=== PATIENT | male | born 1970 | race Caucasian/White ===

== ENCOUNTER 2020-08-13 16:46 | Emergency (ER) | payer SELFPAY ==
[2020-08-13 16:49] VITALS: BP 198/96; PULSE 97; RESP 18; TEMP 37.1; O2SAT 98; BMI 27.6
[2020-08-13 19:28] VITALS: BP 138/90; PULSE 91; RESP 16; O2SAT 94
--- NOTE | 2020-08-13 19:46 | ED_ITS ---
HPI - Skin/Abscess/Foreign Bdy General Chief complaint: Skin/Abscess/Foreign Body Stated complaint: cellulitus Time Seen by Provider: 08/13/20 19:39 Source: patient Mode of arrival: ambulatory Limitations: no limitations History of Present Illness HPI narrative: 49yoM c No Sig PMHx presenting to the ED c c/o Left sided facial pain/swelling and redness x 2 days. Denies any other symptoms complaints or concerns at this time. Related Data Home Medications Medication Instructions Recorded Confirmed No Known Home Meds 08/13/20 08/13/20 Allergies Allergy/AdvReac Type Severity Reaction Status Date / Time No Known Allergies Allergy Verified 08/13/20 16:19 Review of Systems Review of Systems: Constitutional : No Weight loss, No Fever, No Chills, No Night Sweats, No Fatigue, No Malaise ENT/Mouth : No Hearing loss, No Ear Pain, No Nasal Congestion, No Sinus Pain, No Hoarseness, No sore throat, No Rhinorrhea, No Swallowing Difficulty Eyes: No Eye Pain, No Swelling, No Redness, No Foreign Body, No Discharge, No Vision Changes Musculoskeletal : No joint pain, No Myalgias, No Joint Swelling Skin : + Skin Lesions, No rash Neuro : No Weakness Heme/Lymph: No Lymphadenopathy Yes all other systems are reviewed and are negative [facility] Past Medical History Attestation statement: The following information was validated with the patient. Medical History Healthy adult Social History Social History Alcohol intake: current Alcohol intake frequency: holidays/special occasions only Smoking Status: Never smoker Use of substances other than those prescribed or required for medical reasons: No Advance Directives: No Advance Directives Information Provided: No Physical Exam Vital Signs: Vital Signs: Vital Signs Temp Pulse Resp BP Pulse Ox 08/13/20 20:56 78 16 150/78 H 99 08/13/20 19:28 91 16 138/90 H 94 08/13/20 16:49 98.7 F 97 18 198/96 H 98 Body Mass Index 27.6 vital signs have been reviewed as normal and appeared to be correct. Blood pressure normal. Heart rate normal. Respiration rate normal. Temperature normal. Oxygen saturation normal. Appearance: Alert. Oriented X3. No acute distress. Head:See below skin exam Eyes: PERRLA. EOMI. Conjunctiva and sclera normal. Right lower eyelid c STS. ENT: EAC normal. Pharynx normal. Uvula midline. Moist mucous membranes. No trismus noted. No drooling noted. No muffled voice noted. Neck: Normal inspection. Neck supple. FROM. No adenopathy. Thyroid Normal. No meningeal signs. No neck mass noted. CVS: Normal heart rate and rhythm. Heart sound normal. No murmurs noted. Pulses normal throughout. Respiratory: No respiratory distress. Painless inspiration. Breath sounds normal. No wheezes/rales/rhonchi noted. Chest nontender. No accessory muscle usage noted or decreased air movement noted. Back: Full range of motion noted. Skin: to the Right lower eyelid/and maxilla there is noted to be moderate erythema, calor, TTP and induration. No foreign bodies/drainage/streaking noted. The rest of the Skin is warm and dry c Normal skin color. Normal skin turgor. No rashes/lacerations noted. Extremities: Extremities exhibit normal range of motion. Extremities nontender. Neuro: Oriented X 3. No motor deficit. No sensory deficit. Reflexes normal. Course Course Course Narrative: 19:47PM - 49yoM c No Sig PMHx presenting to the ED c c/o Left sided facial pain/swelling and redness x 2 days. Denies any other symptoms complaints or concerns at this time. - Concern for cellulitis vs abscess. - Plan: Labs, Blood cultures, lactic acid and CT scan of facial bones c IV contrast then re-evaluate.. Provide IV fluids, a dose of Zosyn then re- evaluate. Reevaluation(s) Reevaluation #1: Patient mild elevated white blood cell count at 15,000. Otherwise all other labs are within normal limits. CT scan of facial bone revealed soft tissue swelling and edema no abscess or focal fluid collections therefore will DC home with antibiotics and symptomatic treatment along with instructions to return in 2 days for recheck. Patient understands agrees with this plan. Time: 21:57 MDM - Skin/Abscess/Foreign Bdy Medical Records Attestation: I reviewed the patient's medical records. Lab Data Attestation: I reviewed the patient's lab results. Result diagrams: 08/13/20 20:01 08/13/20 20:01 Labs: Lab Results 08/13/20 08/13/20 08/13/20 Range/Units 20:01 20:01 20:01 WBC 15.8 H (4.8-10.8) X10*3/uL RBC 3.80 L (4.60-5.80) X10*6/uL Hgb 12.7 L (14.0-18.0) g/dl Hct 37.3 L (42-52) % MCV 98.2 H (80-98) fL MCH 33.4 H (27.0-33.0) pg MCHC 34.0 (31.0-36.0) g/dl RDW 11.8 (11.0-16.0) % Plt Count 294 (160-400) X10*3/uL MPV 9.8 (9.4-12.4) fL Immature Gran % (Auto) 0.5 H (0.0-0.4) % Neut % (Auto) 81.9 H (45-73) % Lymph % (Auto) 9.5 L (20-40) % [place] % (Auto) 7.1 (2-11) % Eos % (Auto) 0.5 (0-4) % Baso % (Auto) 0.5 (0-2) % Lymph # (Auto) 1.5 (1.2-4.9) X10*3/uL [place] # (Auto) 1.1 (0.1-1.2) X10*3/uL Eos # (Auto) 0.1 (0.0-0.4) X10*3/uL Baso # (Auto) 0.1 (0.0-0.2) X10*3/uL Abs Immat Gran (auto) 0.08 H (0.00-0.03) X10*3/uL Absolute Neuts (auto) 12.9 H (2.0-8.3) X10*3/uL Absolute Nucleated RBC 0.000 (0.0-0.012) X10*3/uL Nucleated RBC % (auto) 0.0 (0.0-0.2) /100WBC PT 13.4 H (10.8-13.0) SEC INR 1.1 (0.9-1.1) Sodium 139 (135-145) mmol/L Potassium 4.2 (3.3-5.1) mmol/l Chloride 101 (96-108) mmol/L Carbon Dioxide 26 (22-29) mmol/L Anion Gap 16 (12-20) BUN 7 L (9-16) mg/dL Creatinine 0.63 (0.5-1.4) mg/dL Estim Creat Clear Calc 142.0 Estimated GFR > 60 Random Glucose 113 (60-115) mg/dL Lactic Acid (0.5-2.0) mmol/L Calcium 9.2 (8.4-10.2) mg/dL 08/13/20 Range/Units 20:01 WBC (4.8-10.8) X10*3/uL RBC (4.60-5.80) X10*6/uL Hgb (14.0-18.0) g/dl Hct (42-52) % MCV (80-98) fL MCH (27.0-33.0) pg MCHC (31.0-36.0) g/dl RDW (11.0-16.0) % Plt Count (160-400) X10*3/uL MPV (9.4-12.4) fL Immature Gran % (Auto) (0.0-0.4) % Neut % (Auto) (45-73) % Lymph % (Auto) (20-40) % [place] % (Auto) (2-11) % Eos % (Auto) (0-4) % Baso % (Auto) (0-2) % Lymph # (Auto) (1.2-4.9) X10*3/uL [place] # (Auto) (0.1-1.2) X10*3/uL Eos # (Auto) (0.0-0.4) X10*3/uL Baso # (Auto) (0.0-0.2) X10*3/uL Abs Immat Gran (auto) (0.00-0.03) X10*3/uL Absolute Neuts (auto) (2.0-8.3) X10*3/uL Absolute Nucleated RBC (0.0-0.012) X10*3/uL Nucleated RBC % (auto) (0.0-0.2) /100WBC PT (10.8-13.0) SEC INR (0.9-1.1) Sodium (135-145) mmol/L Potassium (3.3-5.1) mmol/l Chloride (96-108) mmol/L Carbon Dioxide (22-29) mmol/L Anion Gap (12-20) BUN (9-16) mg/dL Creatinine (0.5-1.4) mg/dL Estim Creat Clear Calc Estimated GFR Random Glucose (60-115) mg/dL Lactic Acid 0.7 (0.5-2.0) mmol/L Calcium (8.4-10.2) mg/dL Imaging Data facial ct: Attestation: I personally reviewed and interpreted this imaging study as follows: Radiologist's impression: IMPRESSION: Significant soft tissue swelling and edema with heterogeneous enhancement of the right cheek but no abscess or focal fluid collection. Patient has had prior dental work. No periosteal abscess seen. A dental etiology though would be suspected. There is minor sinus disease of the maxillary sinuses bilateral. Critical Care Time Critical Care Time Critical Care Time: Yes Total Critical Care Time: 60 Attestation: I personally attest to this time spent taking care of the patient Discharge Plan Discharge Prescriptions: No Action No Known Home Meds RF: 0
--- NOTE | 2020-08-13 19:47 | CT_ITS ---
EXAMINATION: CT FACIAL BONES WITH CONTRAST CLINICAL INFORMATION: Facial swelling and redness, question abscess vs cellulitis. COMPARISON: None TECHNIQUE: Axial images obtained through the facial bone after IV contrast injection of 85 mL of Omnipaque 350. Coronal and sagittal reformatted images are performed at the CT scanner. This CT examination was performed using dose optimization techniques as appropriate, variously including the following: *Automated exposure control. *Adjustment of mA and/or kV according to patient size (this includes techniques or standardized protocols for targeted exams where dose is matched to indication/reason for exam; i.e. extremities or head). *Use of iterative reconstruction technique. DLP: 330 mGy-cm FINDINGS: There is soft tissue swelling of the right cheek with inhomogeneous enhancement and induration of the fat but no abscess or drainable fluid collection. No periosteal abscess. No focal bone destruction or cortical breakthrough. Patient does have dental work and a dental etiology would be suspected. There is mild submucosal thickening at the inferior maxillary sinuses bilaterally but there is no air-fluid levels in the sinuses. The remainder of the paranasal sinuses are normally aerated. No mass or lymphadenopathy. The submandibular glands, parotid glands are normal. The orbits and retrobulbar structures are normal. The imaged portions of the brain demonstrate no acute abnormality. CT/CT facial bones w con IMPRESSION: Significant soft tissue swelling and edema with heterogeneous enhancement of the right cheek but no abscess or focal fluid collection. Patient has had prior dental work. No periosteal abscess seen. A dental etiology though would be suspected. There is minor sinus disease of the maxillary sinuses bilateral.
[2020-08-13 20:09] LABS: MANUAL DIFF FLAG NO
[2020-08-13 20:12] LABS: Basophils Absolute Auto 0.1 X10*3/uL (0.0-0.2); Basophils Percent Auto 0.5 % (0-2); Eosinophils Absolute Auto 0.1 X10*3/uL (0.0-0.4); Eosinophils Percent Auto 0.5 % (0-4); Hematocrit 37.3 % (42-52); Hemoglobin 12.7 g/dl (14.0-18.0); Imm Gran Abs Auto 0.08 X10*3/uL (0.00-0.03); Imm Gran Pct Auto 0.5 % (0.0-0.4); Lymphocytes Absolute Auto 1.5 X10*3/uL (1.2-4.9); Lymphocytes Percent Auto 9.5 % (20-40); Mean Corpuscular Hemoglobin 33.4 pg (27.0-33.0); Mean Corpuscular Volume 98.2 fL (80-98); Mean Platelet Volume 9.8 fL (9.4-12.4); Monocytes Absolute Auto 1.1 X10*3/uL (0.1-1.2); Monocytes Percent Auto 7.1 % (2-11); Neutrophils Absolute Auto 12.9 X10*3/uL (2.0-8.3); Neutrophils Percent Auto 81.9 % (45-73); Platelet Count 294 X10*3/uL (160-400); Red Cell Distribution Width 11.8 % (11.0-16.0); White Blood Count 15.8 X10*3/uL (4.8-10.8)
[2020-08-13 20:17] LABS: INTERNATIONAL NORM RATIO 1.1 (0.9-1.1); Prothrombin Time 13.4 SEC (10.8-13.0)
[2020-08-13] MEDS: 0.9 % Sodium Chloride 1,000 ML 999 ML IVCONT (20:23)
[2020-08-13] MEDS: Piperacillin Sodium/Tazobactam 3.375 GM in 0.9 % Sodium Chloride 50 ML IV (20:23)
--- NOTE | 2020-08-13 20:32 | PC.NURSE ---
IV STARTED FLUIDS AND MEDICATION GIVEN PER [facility]. LABS AND CULTURES SENT.
[2020-08-13 20:34] LABS: Lactic Acid 0.7 mmol/L (0.5-2.0)
[2020-08-13] MEDS: Ketorolac Tromethamine 15 MG/ML VIAL IV (20:40)
[2020-08-13] MEDS: oxyCODONE HCl Immed Release 5 MG TABLET PO (20:40)
[2020-08-13 20:44] LABS: Anion Gap 16 (12-20); Blood Urea Nitrogen 7 mg/dL (9-16); Calcium 9.2 mg/dL (8.4-10.2); Carbon Dioxide 26 mmol/L (22-29); Chloride 101 mmol/L (96-108); Estimated Glomerular Filt Rate > 60; Glucose Random 113 mg/dL (60-115); Potassium 4.2 mmol/l (3.3-5.1); Sodium 139 mmol/L (135-145)
[2020-08-13 20:56] VITALS: BP 150/78; PULSE 78; RESP 16; O2SAT 99
[2020-08-13] MEDS: iohexoL 350 MG/ML 100 ML INFUS..BTL IV (21:20)
== END 2020-08-13 22:15 | disposition home or self-care (01) ==
PROVIDERS: Physician Assistant Medical; Emergency Provider Internal Medicine
DX: L03.211 Cellulitis of face (principal); R51.9 Headache, unspecified
CPT/HCPCS: 36415; 70487; 80048; 83605; 85025; 85610; 87040; 96365; 96375; 99284; 99291; J1885; J2543; Q9967